=== PATIENT | male | born 1980 | race African-American/Black ===

== ENCOUNTER 2020-08-20 15:33 | Emergency (ER) | payer OTHER ==
[2020-08-20 15:43] VITALS: RESP 18; TEMP 98.8
[2020-08-20] MEDS ORDERED: ACETAMINOPHEN TAB 500 MG TAB PO STA (15:59)
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
--- NOTE | 2020-08-20 16:55 | XR ---
EXAMINATION TYPE: XR elbow complete RT DATE OF EXAM: 08/20/2020 COMPARISON: NONE HISTORY: Fall. Pain. TECHNIQUE: 3 views FINDINGS: There is some spurring on the olecranon process of the ulna. There is no evidence of elbow joint effusion. The radial head is intact. Distal humerus is intact. Elbow joint spaces are fairly no rmal. IMPRESSION: Large spur on the olecranon process of the ulna which could BE fractured. No fracture see n involving the elbow joint.
[2020-08-20] MEDS ORDERED: TOPICAL SKIN ADHESIVE 1 EACH AMP TOPICAL ONE (17:20)
[2020-08-20] MEDS ORDERED: BACITRACIN OINT 1 EACH PACKET TOPICAL ONE (17:46)
[2020-08-20 19:09] VITALS: BP 110/63; PULSE 96
== END 2020-08-20 19:09 | disposition home or self-care (01) ==
LOC: EC 15:33
DX: S02.2XXA Fracture of nasal bones, initial encounter for closed fracture (principal); S52.021A Displaced fracture of olecranon process without intraarticular extension of right ulna, initial encounter for closed fracture; S00.81XA Abrasion of other part of head, initial encounter; Z87.891 Personal history of nicotine dependence; Z79.1 Long term (current) use of non-steroidal anti-inflammatories (NSAID); Z79.899 Other long term (current) drug therapy; Y04.0XXA Assault by unarmed brawl or fight, initial encounter
CPT/HCPCS: 70450; 70486; 99284